=== PATIENT | female | born 2000 | race Caucasian/White ===

== ENCOUNTER 2024-07-15 20:39 | Emergency (ER) | payer MEDICAID ==
[~2024-07-15] VITALS: Ht 162.6 cm; Wt 66.7 kg
[2024-07-15] MEDS ORDERED: LORazepam 1 MG Tab PO ONE (23:35)
[2024-07-15] MEDS ORDERED: LORA.5 PO (23:35)
[2024-07-21] MEDS ORDERED: TRAZ50 PO (10:50)
== END 2024-07-16 00:07 | disposition home or self-care (01) ==
LOC: ER 20:39
DX: S00.83XA Contusion of other part of head, initial encounter (principal); F07.81 Postconcussional syndrome; F41.9 Anxiety disorder, unspecified; F98.9 Unspecified behavioral and emotional disorders with onset usually occurring in childhood and adolescence; J45.909 Unspecified asthma, uncomplicated
CPT/HCPCS: 70450; 99285-25; A9270

== ENCOUNTER 2024-07-16 15:38 | Observation (INO) | payer MEDICAID ==
[~2024-07-16] VITALS: Ht 162.6 cm; Wt 68.0 kg
[~2024-07-16 15:38] MED LIST: LORA.5 PO
[2024-07-16] MEDS ORDERED: LORazepam 2 MG/ML 1ML Injection IM ONE (17:25)
[2024-07-16] MEDS ORDERED: Haloperidol Lactate Inj. 5 MG/ML Injection IM ONE (17:25)
[2024-07-16 18:22] LABS: BASOPHILS ABSOLUTE AUTO 0.05 K/mm3 (0.00-0.23); BASOPHILS PERCENT AUTO 1 % (0-2); EOSINOPHILS ABSOLUTE AUTO 0.18 K/mm3 (0.00-0.68); EOSINOPHILS PERCENT AUTO 3 % (0-6); Hematocrit 36.7 % (33.0-51.0); Hemoglobin 12.3 g/dL (11.5-16.0); IMMATURE GRAN ABSOLUTE AUTO 0.01 K/mm3 (0.00-0.10); IMMATURE GRAN PERCENT AUTO 0 % (0-1); LYMPHOCYTES PERCENT AUTO 26 % (21-46); MONOCYTES ABSOLUTE AUTO 0.92 K/mm3 (0.16-1.47); MONOCYTES PERCENT AUTO 13 % (4-13); Mean Corpuscular HGB 29.4 pg (26.0-34.0); Mean Corpuscular HGB Conc 33.5 g/dL (31.5-36.5); Mean Corpuscular Volume 88 fL (80-100); Mean Platelet Volume 10.9 fL (9.1-12.4); NEUTROPHILS ABSOLUTE AUTO 4.25 K/mm3 (1.96-9.15); NEUTROPHILS PERCENT AUTO 58 % (41-73); Platelet Count 217 K/mm3 (150-400); RDW Coefficient Variation 13.3 % (11.7-14.2); RDW Standard Deviation 42.7 fL (35.1-46.3); Red Blood Cell Count 4.19 M/mm3 (3.80-5.20); White Blood Cell Count 7.31 K/mm3 (4.00-11.30)
[2024-07-16 18:39] LABS: Salicylate <1.7 mg/dL (2.8-20.0)
[2024-07-16 18:42] LABS: Acetaminophen, Random <2.0 ug/mL (10.0-30.0); Alanine Aminotransfer (ALT/SGP 20 U/L (12-78); Albumin, Blood 3.9 g/dL (3.4-5.0); Albumin/Globulin Ratio 1.1 (0.8-1.8); Alk Phos 66 U/L (50-136); Anion Gap 19 mmol/L (3-11); Aspartate Aminotrans (AST/SGOT 29 U/L (12-37); Bilirubin, Total 0.4 mg/dL (0.1-1.0); Blood Urea Nitrogen 9 mg/dL (8-24); Bun/Creatinine Ratio 11.1 (12.0-20.0); CO2, Blood 18 mmol/L (21-32); Chloride, Blood 108 mmol/L (98-108); Creatinine, Blood 0.81 mg/dL (0.40-1.00); Ethanol (Alcohol), Blood, Med <3 mg/dL; Globulin, Blood 3.6 g/dL (2.2-4.0); Glomerular Filtration Rate 103 (60-); Glucose, Blood 132 mg/dL (70-99); Potassium, Blood 3.1 mmol/L (3.5-5.5); Sodium, Blood 142 mmol/L (136-145); Total Protein, Blood 7.5 g/dL (6.4-8.2)
[2024-07-16 18:46] LABS: Source, Urine Clean Catch
[2024-07-16 18:57] LABS: Appearance, Urine Hazy (Clear); Bilirubin, Urine Neg (Neg); Blood, Urine 3+ (Neg); Color, Urine Yellow (P-Yellow); Glucose Qualitative, Urine Neg (Neg); Ketones, Urine 2+ (Neg); Leukocyte Esterase, Urine Neg (Neg); Nitrite, Urine Neg (Neg); Protein, Urine 3+ (Neg); Specific Gravity, Urine 1.025 (1.003-1.022); Urobilinogen, Urine NORM (Normal)
[2024-07-16 19:06] LABS: Amorphous Light (0-Heavy); Bacteria Few /hpf; Mucus Light (0-Heavy); Squamous Epithelial Cells Mod /hpf (Few); White Blood Cells, Urine 0-2 /hpf (0-5)
[2024-07-16 19:15] LABS: U Amphetamine Screen Not Detected; U Barbituate Screen Not Detected; U Benzodiazapine Screen DETECTED; U Buprenorphine Screen Not Detected; U Cannabinoids Screen Not Detected; U Cocaine Screen Not Detected; U Methadone Screen Not Detected; U Methamphetamine Screen Not Detected; U Opiates Screen Not Detected; U Oxycodone Screen Not Detected; U Phencyclidine Screen Not Detected
[2024-07-17 13:58] LABS: CORONAVIRUS COVID-19 AG Negative (NEGATIVE); INFLUENZA A AG Negative (NEGATIVE); INFLUENZA B AG Negative (NEGATIVE)
== END 2024-07-17 15:25 | disposition other institution (70) ==
LOC: ER 15:38 → EOR 15:39
PROVIDERS: Emergency Medicine; Physician Assistant; ADMIT Student in an Organized Health Care Education/Training Program
DX: F29 Unspecified psychosis not due to a substance or known physiological condition (principal); J45.909 Unspecified asthma, uncomplicated
CPT/HCPCS: 80053; 80320; 81001; 81025; 85025; 87428-QW; 93005; 93010; 96372; 99285-25; G0378; G0480; J1630; J2060

== ENCOUNTER 2024-07-17 12:51 | Inpatient (IN) | payer MEDICAID ==
[~2024-07-17] VITALS: Ht 165.1 cm; Wt 75.0 kg
[2024-07-17 15:43] VITALS: BP 120/90
[2024-07-17 15:56] VITALS: BP 120/90
[2024-07-17] MEDS ORDERED: Calcium Carbonate 500 MG Tab Chew PO PRN (16:50)
[2024-07-17] MEDS ORDERED: DiphenhydrAMINE HCl 50 MG Cap PO PRN (16:50)
[2024-07-17] MEDS ORDERED: Ibuprofen 600 MG Tab PO PRN (16:55)
[2024-07-17] MEDS ORDERED: Acetaminophen 325 MG TABLET PO PRN (16:55)
[2024-07-17] MEDS ORDERED: Melatonin 3 MG Tab PO PRN (16:55)
[2024-07-17] MEDS ORDERED: DiphenhydrAMINE HCl 50 MG/ML 1ML Vial IV PRN (16:55)
[2024-07-17] MEDS ORDERED: TraZODone HCl 50 MG Tab PO PRN (16:55)
[2024-07-17] MEDS ORDERED: Polyethylene Glycol 3350 17 gm PO PRN (16:55)
[2024-07-17] MEDS ORDERED: Aluminum Hydroxide 320MG/5ML 473 ML PO PRN (16:55)
[2024-07-17] MEDS ORDERED: LORazepam 2 MG/ML 1ML Injection IM PRN (16:55)
[2024-07-17] MEDS ORDERED: LORazepam 2 MG Tab PO PRN (17:00)
[2024-07-17] MEDS ORDERED: Haloperidol Lactate Inj. 5 MG/ML Injection IM PRN (17:00)
[2024-07-17] MEDS ORDERED: OLANZapine ODT 10 MG Tab MM PRN (17:00)
[2024-07-17] MEDS ORDERED: Ondansetron 4 MG SoluTab MM PRN (17:00)
[2024-07-17] MEDS ORDERED: FLU VACC TS2024-25(6MOS UP)/PF 45 MCG/0.5 ML SYRINGE IM SCH (17:00)
[2024-07-17] MEDS ORDERED: HydrOXYzine Pamoate 50 MG Cap PO PRN (17:00)
[2024-07-17] MEDS ORDERED: Haloperidol 5 MG Tab PO PRN (17:00)
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
[2024-07-17] MEDS ORDERED: TraZODone HCl 100 MG Tab PO SCH (21:00)
--- NOTE | 2024-07-18 04:11 | NUR ---
Patient is A&OX4, pleasant and cooperative with staff and peers. out in the milieu in the evening and participated in snack time prior to going to bed. Denies SI,HI and AVH, and does not appear to have any internal stimuli during the evening assessment. Patient was worried about taking the full prescribed dose of Trazodone as she does not take any medications at all. She agreed to take 50mg and agreed to take a 2nd dose if that was not enough. So far, She has slept Eight uninterrupted hours overnight. Will continue close monitoring every 15 minutes for comfort and safety.
[2024-07-18 08:11] VITALS: BP 134/88
[2024-07-18] MEDS ORDERED: Multivitamins 1 Tab PO SCH (09:00)
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
[2024-07-18 20:21] VITALS: BP 140/82
--- NOTE | 2024-07-19 04:14 | NUR ---
SHIFT SUMMARY: PATIENT WAS IN BED RESTING QUIETLY AT THE BEGINNING OF THE SHIFT. SHE WAS AWAKENED FOR OFFER OF SNACK, AND DID PARTICIPATE IN SNACK TIME AND FOLLOW UP GROUP IN THE DINING AREA AT 1999. SHE DID NOT WANT HER TRAZODONE AT THAT TIME, BUT DID GET UP LATER AND ASK FOR IT. SHE WOULD LIKE TO ONLY HAVE 50MG TRAZODONE, SHE FEELS THE 200MG WILL MAKE HER TOO SLEEPY. SHE WAS PLEASANT AND COOPERATIVE WITH CARES. SHE WAS ABLE TO MAKE NEEDS KNOWN. SHE ASKED PERTINENT QUESTIONS AND IS ENGAGED IN HER CARE. SHE DENIED FEELINGS OF SUICIDAL IDEATION OR SELF HARM, STATING THAT SHE IS "HOPEFUL" SINCE COMING TO THE [facility] [[email or web address] SHE WENT TO BED AFTER SNACK, AND GOT UP X1 FOR HER TRAZODONE. OTHERWISE, SHE WAS NOTED TO BE RESTING QUIETLY WITH EYES CLOSED AND RESPIRATIONS CONFIRMED. CONTINUING TO MONITOR FOR SAFETY WITH Q15 MINUTE CHECKS.
[2024-07-19 08:05] VITALS: BP 131/91
--- NOTE | 2024-07-19 18:05 | NUR ---
SHIFT SUMMARY PT AA&OX4. PLEASANT AND COOPERATIVE WITH CARE. SPEECH AND EYE CONTACT APPROPRIATE. REPORTS MOOD IS OKAY. SHE REPORTS SHE IS "JUST GOING THROUGH A BREAKUP" AFFECT IS DEPRESSED. SHE HAS BEEN UP TO SHOWER, GROUPS AND MEALS. SHE HAS SPENT TIME JOURNALING AND INTERACTING WITH PEERS. SHE REPORTS THAT TRAZADONE 50MG HAS WORKED WELL FOR SLEEP AND DENIES ANY NEGATIVE SIDE EFFECTS. SHE DENIES SI, AVH. WILL CONTINUE POC
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
[2024-07-20 08:00] VITALS: BP 130/92
--- NOTE | 2024-07-20 16:08 | NUR ---
HOSPITAL DISCHARGE APPOINTMENT INFORMATION Patient to meet with crisis team for hospital discharge appointment on July 25, 2024 at 1400 // [facility], [address], [place] [address] // [phone] DWAYNE entered appointment information in patient's discharge packet
--- NOTE | 2024-07-20 16:53 | NUR ---
SHIFT SUMMARY: PT A/OX4. PLEASANT AND COOPERATIVE. PT QUIET THROUGH OUT THE DAY. PARTICIPATED IN GROUP ACTIVITIES AND INTERACTED WITH PEERS. SHOWS DEPRESSION AND ANXIETY PRESENT. DENIES SI, HI AND AVH. DID SPEAK MINIMAL ABOUT BREAK UP WITH BOY FRIEND. PT HAS POOR EYE CONTACT AND LOOKS AWAY WHEN TALKING WITH CONVERSATION. BRUISE UNDER LEFT EYE PRESENT WITH NO PAIN PER PT. HAD VISIT WITH DAD TODAY AND FELT DIZZY A THE TIME OF HIS DEPARTURE. VS TAKEN AND B/P 139/96, 100% P93 T 98.8.. PT ATE SOME CHEESE AND FELT BETTER AND WENT BACK TO HER ROOM. CHECKED ON HER AND SHE SAID SHE FELT BETTER AND WAS JOURNALING IN HER BOOK. WILL CONTINUE TO MONITOR
[2024-07-20 21:28] VITALS: BP 128/88
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
[2024-07-21] MEDS ORDERED: TraZODone HCl 50 MG Tab PO PRN (10:40)
[2024-07-21] MEDS ORDERED: TRAZ50 PO ×2 (10:50)
--- NOTE | 2024-07-21 12:52 | NUR ---
DISHCHARGE SUMMARY PT DC HOME WITH HER FATHER AT 1250, PLAN TO FOLLOW UP ON 07/25 WITH [facility] AT [facility] ADDRESS. SCRIPT READY TO BE PICKED UP AT [facility], ALL BELONGINGS RETURNED
== END 2024-07-21 12:50 | disposition home or self-care (01) | DRG 880 ==
LOC: BHU 12:51
PROVIDERS: ADMIT Psychiatry & Neurology Psychiatry
DX: F43.0 Acute stress reaction (principal); J45.909 Unspecified asthma, uncomplicated; F29 Unspecified psychosis not due to a substance or known physiological condition; R51.9 Headache, unspecified; Z79.899 Other long term (current) drug therapy; Z79.1 Long term (current) use of non-steroidal anti-inflammatories (NSAID); Y08.89XA Assault by other specified means, initial encounter
CPT/HCPCS: A9270

== ENCOUNTER → 2024-08-07 | Outpatient (CLI) | payer MEDICAID ==
[~2024-08-07] MED LIST changes: +TRAZ50 PO
[2024-08-07 19:16] LABS: Candida Group, PCR NOT DETECTED (NOT DETECT); Candida glabrata-krusei, PCR NOT DETECTED (NOT DETECT)
[2024-08-07 19:48] LABS: Chlamydia Trachomatis Vaginal NOT DETECTED (NOT DETECT); Neisseria Gonorrhoea Vaginal NOT DETECTED (NOT DETECT)
[2024-08-07 21:15] LABS: Bacterial Vaginosis PCR Positive (NEGATIVE)
== END ==
LOC: LAB 14:59 → LAB SHORT 14:59
PROVIDERS: Physician Assistant
DX: R10.2 Pelvic and perineal pain (principal)
CPT/HCPCS: 81515; 87491; 87591; G0123